=== PATIENT | female | born 2000 | race Caucasian/White ===

== ENCOUNTER 2022-02-21 19:53 | Emergency (ER) | payer BC, SELFPAY ==
[2022-02-21 19:59] VITALS: BP 141/101; PULSE 100; RESP 16; TEMP 36.6; O2SAT 98
[2022-02-21 20:01] VITALS: BP 122/80; PULSE 110; RESP 16; O2SAT 98
--- NOTE | 2022-02-21 20:09 | USR_ITS ---
PROCEDURE INFORMATION: Exam: US First Trimester, Transabdominal and US , Transvaginal Exam date and time: 02/21/2022 9:01 PM Age: 21 years old Clinical indication: Lmp or gestational age (in weeks): 01-08-2022; Other: Vag bleed 24 hrs; Patient HX: This exam was ordered and done before results of hcg received. PT did home pg test; Additional info: Vag bleeding LABS AND CLINICAL REPORTS: Serum Choriogonadotropin (HCG): 5 mIU/mL Last menstrual period start date: 01/08/2022 Gestational age (Established): 6 w 2 d Estimated due date (Established): 10/15/2022 TECHNIQUE: Imaging protocol: Real-time transabdominal obstetrical ultrasound of the maternal pelvis and a first trimester , less than 14 weeks 0 days, with image documentation. Transvaginal imaging was used for better evaluation of the fetus, adnexa, and/or cervix. COMPARISON: No relevant prior studies available. FINDINGS: Gestation: No intrauterine is identified Embryonic/ heart rate: Sought but not identified Extra-embryonic membranes/Placenta: Unremarkable. No subchorionic bleed. Amniotic fluid: Amniotic fluid and extra-amniotic fluid is normal for gestational age. BIOMETRY: Gestational age (AUA): N/A MATERNAL: Uterus: Uterus measures 4.3 cm x 5.9 cm x 2.6 cm. 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 Endometrium measures 5 mm. Cervix: Cervix is 2.3 cm in length and closed. Right ovary/adnexa: Right ovary measures 3.7 cm x 1.6 cm x 3.8 cm. Right ovarian volume is 12.8 mL. There are small follicles in the right ovary. There is normal Doppler flow in the right ovary. Left ovary/adnexa: Left ovary measures 3.3 cm x 2.4 cm x 2.5 cm. Left ovarian volume is 10.8 mL. There are small follicles in the left ovary. There is normal Doppler flow in the left ovary. Intraperitoneal space: There is moderate amount of free fluid in the posterior cul-de-sac. US/US OB <=14 wk fetus w transvag IMPRESSION: No intrauterine is identified.
--- NOTE | 2022-02-21 20:18 | W.ED.GENADLT ---
HPI - General Adult General: Chief complaint: Vaginal Bleeding Stated complaint: vaginal bleeding Time Seen by Provider: 02/21/22 20:04 History of Present Illness: Patient is a 21-year-old female with no prior presenting to the emergency room with concerns of vaginal bleeding and pelvic cramps since 12:00 and midnight yesterday. Patient noted that she thinks that she is 6 weeks based on LMP. Patient tells me that this is her first . Patient denies any strong contraction but reports significant pelvic cramps as pelvic RING. Patient denies any trauma, abdominal pain, nausea/vomiting, new vaginal discharge, diarrhea, melena/hematochezia. Reports passage of clots earlier today. Onset:midnight yesterday Duration:ongoing Location:home Severity:moderate Associated symptoms: Reports nausea and vomiting; Deny chest pain, dyspnea, rash or palpitations Review of Systems Const: Denies: fever(s) or chills Eyes: Denies: change in vision ENMT: Denies: mouth pain Card: Denies: chest pain or palpitations Resp: Denies: dyspnea or non-productive cough GI: Reports: nausea and vomiting; Denies: abdominal pain or diarrhea : Reports: other (+vaginal bleeding and pelvic cramps); Denies: dysuria Musc: Denies: extremity pain Skin/Breast: Denies: rash or new lesions Neuro: Denies: weakness in extremities Psych: Reports: other (Normal mood) Feng/Lymph: Denies: easy bruising PFS ED PFSH: Medical History (Updated 02/21/22 @ 20:20 by Amos Turner MD) No pertinent past medical history Social History (Updated 02/21/22 @ 20:20 by Amos Turner MD) Smoking and tobacco status: never smoked Alcohol intake: never Substance/Drug Use: never Physical Exam Const: COMMON NORMALS: alert HENMT: COMMON NORMALS: atraumatic HEAD & SCALP: atraumatic MOUTH: moist mucous membranes not abnormal Eye: COMMON NORMALS: EOMs intact bilaterally and conjunctivae normal CONJUNCTIVA: Yes conjunctivae normal Neck/C-Spine: COMMON NORMALS: full ROM and supple Resp: COMMON NORMALS: normal respiratory effort and clear to auscultation bilaterally AUSCULTATION: clear to auscultation bilaterally Cardio: COMMON NORMALS: regular rate RATE: regular rate GI: COMMON NORMALS: Soft to palpation and non-tender PALPATION: Yes Soft to palpation OTHER: No focal TTP. NO guarding rebound, guarding, rigidity. No CVA tenderness to percussion. Neg De Los Santos/Neg McBurney's point tenderness, no suprabupic tenderness to palpation. : OTHER: Exam supervised by SWAPNA Cueto: External genitalia wnl. No erythema around cervical os, os closed, no discharge, +mild blood in the vaginal vault without active bleeding. No CMT, no adnexal tenderness. Extremity: COMMON NORMALS: full ROM Neuro: SENSORIUM/ORIENTATION: Yes alert MOTOR EXAM: No Abnormal motor strength present and Other motor observations present (no focal motor deficits) Psych: COMMON NORMALS: speech normal SPEECH: Yes normal speech MOOD & AFFECT: Yes euthymic mood Course Vital Signs: Vital signs: Vital Signs Temperature 98.0 F 02/21/22 22:20 Pulse Rate 90 02/21/22 22:20 Respiratory Rate 18 02/21/22 22:20 Blood Pressure 132/73 02/21/22 22:20 Pulse Oximetry 98 02/21/22 22:20 Oxygen Delivery Me thod 02/21/22 22:20 MDM - General Adult Medical Decision Making Patient is a 21-year-old female with no prior presenting to the emergency room with concerns of vaginal bleeding and pelvic cramps since 12:00 and midnight yesterday. On exam, patient was noted to have mild blood in the vaginal vault without any signs of extravasation. No large clots today. Patient is found to have a hemoglobin of 15.5. Patient has a sodium 128. Ultrasound not show any signs of IUP.. Patient has not beta hCG within normal limit. At present time given patient close follow-up with primary care provider for reassessment of beta-hCG in 48 hrs. Patient is instructed to repeat sodium in 1 week and to increase salt intake. I have given patient follow up with our rn field case manager to be seen by our outpatient by our MARKETING PROGRAM MANAGER provider for reassessing BHCG. Patient aware of a call from our rn field case manager to schedule for appointment(s) and verbalizes understanding of the importance of following up. Patient also request to be seen by her primary care provider to establish care. We will establish patient with a primary care provider. Rx tylenol PRN pain Disposition: Discharge. Patient counseled regarding diagnostic impression, treatment plan. Patient given ED strict return precautions to return for continuation, worsening, or development of new symptoms. Instructed to f/u w/ PCP and MARKETING PROGRAM MANAGER regarding symptoms today. Patient verbalized understanding. Lab Data : 02/21/22 20:20 02/21/22 20:20 Radiology Impressions Obstetrics Ultrasound 02/21/22 20:09 IMPRESSION: No intrauterine is identified. Laboratory Results WBC 8.5 10^3/uL (4.5-13.0) 02/21/22 20:20 RBC 5.00 10^6/uL (4.1-5.3) 02/21/22 20:20 Hgb 15.5 g/dL (11.5-15.3) H 02/21/22 20:20 Hct 44.3 % (37.0-47.0) 02/21/22 20:20 MCV 88.6 fl (81-99) 02/21/22 20:20 MCH 31.0 pg (28.0-34.0) 02/21/22 20:20 MCHC 35.0 g/dL (30.0-36.0) 02/21/22 20:20 RDW 12.1 % (12.1-15.1) 02/21/22 20:20 Plt Count 281 10^3/cmm (130-400) 02/21/22 20:20 MPV 9.1 fL (7.4-10.4) 02/21/22 20:20 Neut % (Auto) 61.9 % 02/21/22 20:20 Lymph % (Auto) 26.7 % 02/21/22 20:20 Hart % (Auto) 6.1 % 02/21/22 20:20 Eos % (Auto) 4.5 % 02/21/22 20:20 Baso % (Auto) 0.6 % 02/21/22 20:20 Neut # (Auto) 5.25 10^3/uL (1.8-8.0) 02/21/22 20:20 Lymph # (Auto) 2.3 10^3/uL (1.5-6.5) 02/21/22 20:20 Hart # (Auto) 0.5 10^3/uL (0.2-0.9) 02/21/22 20:20 Eos # (Auto) 0.4 10^3/uL (0.0-0.8) 02/21/22 20:20 Baso # (Auto) 0.1 10^3/uL (0.0-0.1) 02/21/22 20:20 Nucleated RBC % (auto) 0 % 02/21/22 20:20 Nucleated RBCs # 0.0 /100WBC 02/21/22 20:20 Sodium 128 mmol/L (136-145) L 02/21/22 20:20 Potassium 3.6 mmol/L (3.5-5.1) 02/21/22 20:20 Chloride 92 mmol/L (98-107) L 02/21/22 20:20 Carbon Dioxide 25 mmol/L (22-29) 02/21/22 20:20 Anion Gap 14.6 (5-19) 02/21/22 20:20 BUN 11 mg/dL (6-20) 02/21/22 20:20 Creatinine 0.7 mg/dL (0.5-0.9) 02/21/22 20:20 GFR Calculation 107.8 mL/min (90-130) 02/21/22 20:20 Glucose 94 mg/dL (65-115) 02/21/22 20:20 Calculated Osmolality 265 mOsm/kg (285-295) L 02/21/22 20:20 Calcium 9.7 mg/dL (8.5-10.5) 02/21/22 20:20 Total Bilirubin 0.5 mg/dL (0.15-1.2) 02/21/22 20:20 AST 30 U/L (0-32) 02/21/22 20:20 ALT 47 U/L (0-33) H 02/21/22 20:20 Alkaline Phosphatase 100 U/L (35-105) 02/21/22 20:20 Total Protein 8.1 g/dL (6.6-8.7) 02/21/22 20:20 Albumin 5.0 g/dL (3.5-5.2) 02/21/22 20:20 Globulin 3.1 g/dL (1.3-4.6) 02/21/22 20:20 Lipase 23 U/L (13-60) 02/21/22 20:20 Ser , Semi-Qnt 0.50 mIU/mL 02/21/22 20:20 Urine Color Yellow (Yellow) 02/21/22 22:10 Urine Appearance Clear (CLEAR) 02/21/22 22:10 Urine pH 5 (5-7) 02/21/22 22:10 Ur Specific [place] 1.015 (1.005-1.030) 02/21/22 22:10 Urine Protein Neg (Negative) 02/21/22 22:10 Urine Glucose (UA) Norm (Normal) 02/21/22 22:10 Urine Ketones Negative (Negative) 02/21/22 22:10 Urine Blood 3+ (Negative) H 02/21/22 22:10 Urine Nitrate Negative (Negative) 02/21/22 22:10 Urine Bilirubin Neg (Negative) 02/21/22 22:10 Urine Urobilinogen Neg mg/dL (Negative) 02/21/22 22:10 Ur Leukocyte Esterase Negative (Negative) 02/21/22 22:10 Urine RBC 0-4 /hpf (0-2) H 02/21/22 22:10 Urine WBC 0-4 /hpf (0-5) H 02/21/22 22:10 Ur Squamous Epith Cells 0-4 /hpf (0-5) H 02/21/22 22:10 Amorphous Sediment Not Reportable 02/21/22 22:10 Urine Bacteria None /hpf (NONE) 02/21/22 22:10 Urine Mucus Trace /hpf 02/21/22 22:10 Imaging Data Other Imaging: Radiologist's impression: [address] [address] Ultrasound Report Signed Patient: Larry Swain Unit #: [id number] : 2000 Age/Sex: 21 / F ADM Date: 02/21/22 Loc: ER Room/Bed: Attending Dr: Ordering Provider/Ordering MD: Amos Turner MD Date of Service: 02/21/22 Procedure(s): US OB <=14 wk fetus w transvag Accession Number(s): [id number] Report Number: [id number] PROCEDURE INFORMATION: Exam: US First Trimester, Transabdominal and US , Transvaginal Exam date and time: 02/21/2022 9:01 PM Age: 21 years old Clinical indication: Lmp or gestational age (in weeks): 01-08-2022; Other: Vag bleed 24 hrs; Patient HX: This exam was ordered and done before results of hcg received. PT did home pg test; Additional info: Vag bleeding LABS AND CLINICAL REPORTS: Serum Choriogonadotropin (HCG): 5 mIU/mL Last menstrual period start date: 01/08/2022 Gestational age (Established): 6 w 2 d Estimated due date (Established): 10/15/2022 TECHNIQUE: Imaging protocol: Real-time transabdominal obstetrical ultrasound of the maternal pelvis and a first trimester , less than 14 weeks 0 days, with image documentation. Transvaginal imaging was used for better evaluation of the fetus, adnexa, and/or cervix. COMPARISON: No relevant prior studies available. FINDINGS: Gestation: No intrauterine is identified Embryonic/ heart rate: Sought but not identified Extra-embryonic membranes/Placenta: Unremarkable. No subchorionic bleed. Amniotic fluid: Amniotic fluid and extra-amniotic fluid is normal for gestational age. BIOMETRY: Gestational age (AUA): N/A MATERNAL: Uterus: Uterus measures 4.3 cm x 5.9 cm x 2.6 cm. 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 Endometrium measures 5 mm. Cervix:? Cervix is 2.3 cm in length and closed. Right ovary/adnexa: Right ovary measures 3.7 cm x 1.6 cm x 3.8 cm. Right ovarian volume is 12.8 mL. There are small follicles in the right ovary. There is normal Doppler flow in the right ovary. Left ovary/adnexa: Left ovary measures 3.3 cm x 2.4 cm x 2.5 cm. Left ovarian volume is 10.8 mL. There are small follicles in the left ovary. There is normal Doppler flow in the left ovary. Intraperitoneal space: There is moderate amount of free fluid in the posterior cul-de-sac. US/US OB <=14 wk fetus w transvag IMPRESSION: No intrauterine is identified. ? Dictated By: Gene Polk Signed By: Gene Polk Signed Date/Time: 02/21/222215 DD/ 00 Discharge Plan Discharge Patient Disposition: Home Clinical Impression: Vaginal bleeding, Pelvic cramping Condition: Stable Prescriptions: New acetaminophen 500 mg tablet 500 mg PO Q6H PRN (Reason: pain) 5 Days Qty: 20 0RF Discharge Orders: Discharge ED (Routine); Ordered 02/21/22 Ordered By: Amos Turner Discharge Diet: Advance as tolerated Discharge Activity: Increase activity as tolerated Patient Instructions: Abnormal (Dysfunctional) Uterine Bleeding (ED) Activity Restrictions/Additional Instructions: Our rn field case manager will have you follow-up with an MARKETING PROGRAM MANAGER provider in the next few days. You would be expected to have a phone call with our rn field case manager who will put you on the schedule. You can expect a call from us in the next 2-3 days. If you don't hear from us, call us back in the emergency room at [phone]. Please follow up with an MARKETING PROGRAM MANAGER provider or primary care provider in the next 2 days to recheck your test Come back to the ER if your bleeding gets worse, you have any fever/passage of clots or heavy bleeding, or any new concerning complaints. Please take more salt tablets as your sodium is 128 today. Please have your sodium repeated next week. Coding Level of Care Code ED Facility Supervisor for [facility] Fwd Exam Comprehensive
[2022-02-21] MEDS: acetaminophen 500 mg Tablet PO (20:31)
[2022-02-21 20:34] LABS: Basophils # 0.1 10^3/uL (0.0-0.1); Basophils % 0.6 %; Eosinophils # 0.4 10^3/uL (0.0-0.8); Eosinophils % 4.5 %; Hematocrit 44.3 % (37.0-47.0); Hemoglobin 15.5 g/dL (11.5-15.3); Lymphocytes # 2.3 10^3/uL (1.5-6.5); Lymphocytes % 26.7 %; Mean Corpuscular Volume 88.6 fl (81-99); Mean Platelet Volume 9.1 fL (7.4-10.4); Monocytes # 0.5 10^3/uL (0.2-0.9); Monocytes % 6.1 %; Neutrophils # 5.25 10^3/uL (1.8-8.0); Neutrophils % 61.9 %; Nucleated Red Blood Cells % 0 %; Platelet Count 281 10^3/cmm (130-400); Red Cell Distribution Width 12.1 % (12.1-15.1); White Blood Count 8.5 10^3/uL (4.5-13.0)
[2022-02-21 21:18] LABS: Alanine Aminotransferase 47 U/L (0-33); Alkaline Phosphatase 100 U/L (35-105); Blood Urea Nitrogen 11 mg/dL (6-20); Calcium 9.7 mg/dL (8.5-10.5); Carbon Dioxide 25 mmol/L (22-29); Chloride 92 mmol/L (98-107); Globulin 3.1 g/dL (1.3-4.6); Glomerular Filtration Rate 107.8 mL/min (90-130); Glucose 94 mg/dL (65-115); Lipase 23 U/L (13-60); Osmolality Calculated 265 mOsm/kg (285-295); Sodium 128 mmol/L (136-145); Total Bilirubin 0.5 mg/dL (0.15-1.2); Total Protein 8.1 g/dL (6.6-8.7)
[2022-02-21 21:21] LABS: Anion Gap 14.6 (5-19); Aspartate Amino Transferase 30 U/L (0-32); Potassium 3.6 mmol/L (3.5-5.1)
[2022-02-21 22:20] VITALS: BP 132/73; PULSE 90; RESP 18; TEMP 36.7; O2SAT 98
[2022-02-21 22:50] LABS: Add Urine Microscopic? YES; Bilirubin Urine Neg (Negative); Blood Urine 3+ (Negative); Glucose Urine UA Norm (Normal); Ketones Urine Negative (Negative); Leukocyte Esterase Urine Negative (Negative); Nitrate Urine Negative (Negative); Protein Urine Neg (Negative); Specific Gravity, Urine 1.015 (1.005-1.030); Urine Appearance Clear (CLEAR); Urine Color Yellow (Yellow); Urobilinogen Urine Neg (Negative); pH Urine 5 (5-7)
[2022-02-21 22:52] LABS: Add Urine Culture? No; Mucus Urine TRACE /hpf; RBC Urine 0-4 /hpf (0-2); Squamous Epithelial Cell Urine 0-4 /hpf (0-5); WBC Urine 0-4 /hpf (0-5)
[2022-02-21 22:55] VITALS: BP 132/73; PULSE 90; RESP 18; TEMP 36.7; O2SAT 98
--- NOTE | 2022-02-23 10:16 | DCPLANNER ---
manager winter had message to speak with patient about getting established with a primary care physician. manager winter called phone number [phone], recording stated that this number was no longer in service.
--- NOTE | 2022-02-23 11:27 | DCPLANNER ---
Addendum entered by Soo Hudson 02/25/22 11:43: [facility] corrections caseworker stating that patient will need to follow up with her primary care physician. Clinic will call patient and explain to patient that she will need to follow up with primary care. Original Note: intern product marketing manager had message to schedule a follow up appointment for patient with [facility]. intern product marketing manager sent patients information to the front office staff at [facility]. Patients information will be printed and reviewed. Clinic will call patient with appointment information.
== END 2022-02-21 22:58 | disposition home or self-care (01) ==
PROVIDERS: Emergency Provider Emergency Medicine
DX: N93.9 Abnormal uterine and vaginal bleeding, unspecified (principal); R10.2 Pelvic and perineal pain
CPT/HCPCS: 76801; 76817; 80053; 81001; 83690; 84702; 85025; 99284